=== PATIENT | male | born 1930 | race Caucasian/White ===

== ENCOUNTER 2018-06-11 07:44 | Day surgery (SDC) | payer MEDICARE ==
[2018-06-11] MEDS ORDERED: CEFAZOLIN 2 GM/D5W RTU 2 GM/50 ML RTUPB IV PRN (07:56)
[2018-06-11] MEDS ORDERED: BUPIVACAINE HCL 0.25% /EPINEPHRINE INJ/PF 30 ML SDV ONE (07:58)
[2018-06-11 08:16] LABS: HEMATOCRIT 37.7 % (37.9-51.0); MEAN CORPUSCULAR HEMOGLOBIN 31.8 pg (27.0-33.4); MEAN CORPUSCULAR HGB CONC 34.4 g/dL (32.0-36.0); MEAN CORPUSCULAR VOLUME 92 fl (80-97); PLATELET COUNT 183 10^3/uL (150-450); RED BLOOD COUNT 4.08 10^6/uL (4.35-5.55); RED CELL DISTRIBUTION WIDTH 13.8 % (11.5-14.0); WHITE BLOOD COUNT 7.8 10^3/uL (4.0-10.5)
[2018-06-11] MEDS ORDERED: ONDANSETRON HCL INJ/PF 4 MG/2 ML SDV ONE (08:18)
[2018-06-11] MEDS ORDERED: FENTANYL CITRATE INJ/PF 100 MCG/2 ML AMPUL ONE ×2 (08:18→10:23)
[2018-06-11] MEDS ORDERED: DEXAMETHASONE SOD PHOSPHATE INJ 4 MG/1 ML VIAL ONE (08:18)
[2018-06-11] MEDS ORDERED: MIDAZOLAM 2 MG/2 ML INJ ONE (08:18)
[2018-06-11] MEDS ORDERED: KETOROLAC TROMETHAMINE 60 MG/2 ML SDV ONE (08:18)
[2018-06-11] MEDS ORDERED: ACETAMINOPHEN 1,000 MG/100 ML RTUPB IV ONE (08:19)
[2018-06-11] MEDS ORDERED: PROPOFOL INJ 200 MG/20 ML VIAL IV ONE (08:19)
[2018-06-11 08:20] LABS: INTERNATIONAL RATION (INR) 1.25; PROTHROMBIN TIME 16.3 SEC (11.4-15.4)
[2018-06-11 08:21] LABS: PARTIAL THROMBOPLASTIN TIME 30.2 SEC (23.5-35.8)
[2018-06-11 08:32] LABS: ANION GAP 11 (5-19); BLOOD UREA NITROGEN 43 mg/dL (7-20); CALCIUM 9.9 mg/dL (8.4-10.2); CARBON DIOXIDE 27 mmol/L (22-30); CHLORIDE 104 mmol/L (98-107); GLUCOSE 107 mg/dL (75-110); POTASSIUM 4.1 mmol/L (3.6-5.0); SODIUM 141.5 mmol/L (137-145)
[2018-06-11] MEDS ORDERED: CEFAZOLIN 2 GM/D5W RTU 2 GM/50 ML RTUPB IV ONE (08:32)
[2018-06-11] MEDS ORDERED: LIDOCAINE 0.5% INJ-PF (5 MG/ML) 50 ML SDV ONE (08:47)
[2018-06-11] MEDS ORDERED: EPHEDRINE SULFATE INJ 50 MG/1 ML AMPULE ONE (09:20)
[2018-06-11] MEDS ORDERED: MORPHINE SULFATE 10 MG/ML INJ IV PRN (09:32)
[2018-06-11] MEDS ORDERED: ONDANSETRON HCL INJ/PF 4 MG/2 ML SDV IV PRN (09:32)
[2018-06-11] MEDS ORDERED: PROMETHAZINE HCL INJ 25 MG/1 ML VIAL IV PRN ×2 (09:32)
[2018-06-11] MEDS ORDERED: FENTANYL CITRATE INJ/PF 100 MCG/2 ML AMPUL IV PRN ×3 (09:32)
[2018-06-11] MEDS ORDERED: OXYCODONE-ACETAMINOPHEN 5-325 MG TABLET PO PRN ×2 (09:32)
[2018-06-11] MEDS ORDERED: DIPHENHYDRAMINE HCL 50 MG/ML VIAL IV PRN (09:32)
[2018-06-11] MEDS ORDERED: MEPERIDINE HCL/PF INJ 25 MG/1 ML DISP.SYRIN IV PRN (09:32)
--- NOTE | 2018-06-11 10:00 | Discharge Summary ---
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
--- NOTE | 2018-06-11 10:03 | Operative Report ---
Operative Report DATE OF SURGERY: 06/11/18 PREOPERATIVE DIAGNOSIS: Right forearm myxoid liposarcoma, 7 cm OPERATION: Resection right forearm liposarcoma SURGEON: BECCA CARLSON ANESTHESIA: IV-Regional TISSUE REMOVED OR ALTERED: Specimen 2 to pathology ESTIMATED BLOOD LOSS: 50 PROCEDURE: With the patient supine on the operating table in a [place] block is placed into the right upper extremity. Examination of the mass reveals that the skin is mobile with respect to the underlying mass suggesting a safe plane of dissection between the subcutaneous tissue and the mass. Subsequently longitudinal incisions made over the distal ulnar aspect of the forearm overlying soft tissue mass. A subcutaneous dissection was performed around the ulnar border, the volar border, and the dorsal border of the mass. A small cuff of the extensor carpi ulnaris is taken along the radial border of the mass and then this proceeds down to a subperiosteal dissection along the ulnar border. A small portion of the flexor carpi ulnaris is then taken along the volar portion of the mass and the underlying ulnar neurovascular bundle is visualized but not surgically dissected. The mass was delivered from the field and 2 sutures were placed dorsally. One suture was placed distally. The wound is then irrigated and hemostasis obtained with electrocautery. Is 1 small area of tissue that remains suspicious in my mind and this is taken and sent as a separate specimen. The wound was then closed in layers using interrupted Vicryl followed by nylon. A sterile compressive dressing is applied and the patient's return to the PACU in satisfactory condition.
[2018-06-11] MEDS ORDERED: MORPHINE SULFATE 10 MG/ML INJ ONE (10:24)
[2018-06-11] MEDS ORDERED: OXYCODONE HCL IR 5 MG TABLET ONE (11:06)
--- NOTE | 2018-06-11 11:45 | EKG REPORT ---
SEVERITY:- ABNORMAL ECG - ATRIAL FIBRILLATION RIGHT BUNDLE BRANCH BLOCK : Confirmed by: Nadia Wyman MD 11-Jun-2018 11:44:41
[2018-06-11 12:44] VITALS: BP 129/63
== END 2018-06-11 12:45 | disposition home or self-care (01) ==
LOC: OROUT 07:44
PROVIDERS: ATTEND Orthopaedic Surgery
DX: C49.11 Malignant neoplasm of connective and soft tissue of right upper limb, including shoulder (principal); E03.9 Hypothyroidism, unspecified; E78.00 Pure hypercholesterolemia, unspecified; E78.5 Hyperlipidemia, unspecified; D64.9 Anemia, unspecified; I48.91 Unspecified atrial fibrillation; I49.9 Cardiac arrhythmia, unspecified; G89.4 Chronic pain syndrome; I05.9 Rheumatic mitral valve disease, unspecified; J43.9 Emphysema, unspecified; Z79.51 Long term (current) use of inhaled steroids; Z79.899 Other long term (current) drug therapy; Z79.01 Long term (current) use of anticoagulants; Z95.2 Presence of prosthetic heart valve; Z85.46 Personal history of malignant neoplasm of prostate
CPT/HCPCS: 25071; 36415; 85027; 85610; 85730; 80048; 88342 ×2; 88341 ×2; 88305 ×2; 88307 ×2; 88312 ×2; 93005; 93010; J2250; J3490 ×2; J3010; J2704; A9270; J0690; J0131; J1100; J1885; J2270; J2405